=== PATIENT | male | born 1955 | race Caucasian/White ===

== ENCOUNTER 2023-10-23 08:09 | Inpatient (IN) | payer MEDICARE, SELFPAY ==
--- NOTE | ~2023-10-23 | XR_ITS ---
EXAMINATION: XR abdomen obstructive series DATE: 10/25/2023 11:23 INDICATION: Abdominal pain. Small bowel obstruction. TECHNIQUE: Upright and supine views of the abdomen were obtained. COMPARISON: CT abdomen and pelvis 10/23/2023 FINDINGS: There are no dilated loops of bowel. There is a small of stool in the colon. There are surg ical clips in left abdomen. No free intraperitoneal gas. IMPRESSION: 1. Nonobstructive bowel gas pattern. Reviewed, dictated and finalized at location E.
--- NOTE | ~2023-10-23 | XR_ITS ---
XR abdomen gastric tube insert INDICATION: Evaluate NG tube position. TECHNIQUE: Limited KUB perform for evaluating NG tube . COMPARISON: FINDINGS: NG tube is coiled in the distal esophagus. Recommend repositioning.. Visualized bowel gas pattern is nonspecific. IMPRESSION: 1: NG tube coiled in the distal esophagus. Recommend retraction with repositioning. Reviewed, dictated and finalized at location A. IMPRESSION: 1: NG tube coiled in the distal esophagus. Recommend retraction with repositio mayi.
--- NOTE | ~2023-10-23 | XR_ITS ---
XR chest 1V portable 10/23/2023 13:47 Indication: Pneumonia Procedure: AP portable chest Comparison: 02/28/2019 Findings: Bibasilar infiltrates, suspicious for pneumonia. NG tube tip in the stomach. The lungs are hyperinflated which is consistent with, but not diagnostic of chronic obstructive pulmonary disease. No significant effusion. No pneumothorax. Impression: 1: Bibasilar infiltrates, consistent with pneumonia. Reviewed, dictated and finalized at location A. Impression: 1: Bibasilar infiltrates, consistent with pneumonia.
--- NOTE | ~2023-10-23 | CT_ITS ---
EXAMINATION: CT abdomen pelvis w con DATE: 10/23/2023 09:49 INDICATION: Abdomen pain TECHNIQUE: Computed tomography (CT) of the abdomen and pelvis was performed without intravenous contr ast. The dose-length product was 312.69 mGy-cm. Automated exposure control and iterative reconstructi on technique were employed. COMPARISON: CT report dated 11/11/2013. Study is not available for direct comparison. FINDINGS: There are groundglass opacities of the lingula, left lower lobe. There is reticular nodular ity of the left lower lobe. There is mucous plugging in the lower lobe bronchi bilaterally. There is an 8 mm right lower lobe nodule, image 13 there are calcified granulomas of the left lower lobe. Hear t size normal. There are dilated fluid-filled small bowel loops throughout the abdomen. There is a right inguinal he rnia with a efferent segment being nondistended in the afferent segment being dilated, consistent wit h a small bowel obstruction secondary to hernia. There is fecal loading of the rectum. Fatty infiltra tion of the liver. There are calcified granulomas of the spleen. Gallbladder is moderately distended. No significant vascular abnormality. No lymphadenopathy. IMPRESSION: 1. Small bowel obstruction, likely transitioning and right inguinal hernia. 2: Groundglass opacities and mucous plugging of the lingula and left lower lobe, consistent with pneu monia. 3: Right lower lobe nodule measuring 8 mm. Recommend follow-up CT in 6 months. Reviewed, dictated and finalized at location A. IMPRESSION: 1. Small bowel obstruction, likely transitioning and right inguinal hernia. 2: Groundglass opacities and mucous plugging of the lingula and left lower lobe , consistent with pneumonia. 3: Right lower lobe nodule measuring 8 mm. Recommend follow-up CT in 6 months.
--- NOTE | ~2023-10-23 | XR_ITS ---
XR abdomen gastric tube rechec INDICATION: Evaluate NG tube position. TECHNIQUE: Limited KUB perform for evaluating NG tube . COMPARISON: 10/23/2023 FINDINGS: NG tube tip in the stomach. Visualized bowel gas pattern is nonspecific.There is residual contrast in nondilated renal collecting systems. IMPRESSION: 1: NG tube tip in the stomach. Reviewed, dictated and finalized at location A.
[2023-10-23 08:07] VITALS: BP 107/86; PULSE 100; RESP 16; TEMP 36.8; O2SAT 98
--- NOTE | 2023-10-23 08:33 | PC.NURSE ---
attempted to draw blood at this time without success. called phlebotomy at [id number] and they said they will come help
[2023-10-23 08:57] LABS: Basophils Absolute Auto 0.1 K/mm3 (0.0-0.1); Basophils Percent Auto 0.5 % (0.2-1.2); Eosinophils Absolute Auto 0.1 K/mm3 (0-0.3); Eosinophils Percent Auto 0.7 % (0-4.4); Hematocrit 49.8 % (42.0-52.0); Hemoglobin 16.8 g/dL (14.0-18.0); Immature Granulocyte Absolute 0.09 K/mm3 (0.00-0.031); Immature Granulocyte Percent A 0.5 % (0-0.5); Lymphocytes Absolute Auto 2.86 K/mm3 (0.9-3.2); Lymphocytes Percent Auto 15.8 % (18.3-44.2); Mean Corpuscular HGB Conc 33.7 g/dl (32-36); Mean Corpuscular Hemoglobin 29.4 pg (26-34); Mean Corpuscular Volume 87.1 fl (80-100); Mean Platelet Volume 8.6 fl (7.4-10.4); Monocytes Absolute Auto 1.8 K/mm3 (0.1-0.6); Monocytes Percent Auto 10.2 % (2.6-8.5); Neutrophils Absolute Auto 13.1 K/mm3 (1.3-6.7); Neutrophils Percent Auto 72.3 % (45.5-73.1); Platelet Count Result 556 k/mm3 (150-375); Red Blood Count 5.72 M/mm3 (4.6-6.20); Red Cell Distribution Width 14.3 % (11.5-14.5); White Blood Count 18.1 K/mm3 (4.5-10.0)
[2023-10-23 09:06] LABS: Lactic Acid Reflex 2.7 mmol/L (0.7-2.0)
[2023-10-23 09:07] LABS: Alanine Aminotransferase 18 U/L (6-50); Albumin Level 4.5 g/dL (3.5-5.1); Alkaline Phosphatase 134 U/L (38-126); Anion Gap 13 mmol/L (4-12); Aspartate Amino Transferase 32 U/L (17-59); Bilirubin,Total 0.8 mg/dL (0.2-1.3); Blood Urea Nitrogen 11 mg/dL (9-20); Calcium 9.6 mg/dL (8.4-10.2); Carbon Dioxide 22 mmol/L (22-30); Chloride 96 mmol/L (98-107); Estimated CRCL calculation 107 ml/min; Estimated Glomerular Filt Rate > 60; Glucose 109 mg/dL (65-110); Lipase 183 U/L (23-300); Potassium 3.4 mmol/L (3.4-5.0); Sodium 131 mmol/L (137-145)
[2023-10-23] MEDS: SODIUM CHLORIDE 0.9% IV 1,000 ML 30 ML IV CONT (09:15)
[2023-10-23] MEDS: ONDANSETRON INJ 4 MG/2 ML VIAL IV PUSH (09:15)
[2023-10-23] MEDS: MORPHINE SULFATE (*CRX) 4 MG/ML INJ IV PUSH ×3 (09:15→13:32)
--- NOTE | 2023-10-23 09:26 | PC.NURSE ---
pt was to receive 1L NS, rate changed to infuse bag at 999ml/hr
--- NOTE | 2023-10-23 10:34 | ED.ABDPAIN ---
HPI - Abdominal Pain General Chief Complaint: Abdominal Pain Stated Complaint: abd pain, n/v Time Seen by Provider: 10/23/23 08:14 History of Present Illness HPI narrative: This is a 68-year-old male, with history of inguinal hernia, presents emergency department complaining of left-sided abdominal pain for the past 4 days. Patient states the pain is constant, sharp cramping. He states his last bowel movement was 5 days ago, though was able to pass gas today. This is associated with nausea and nonbloody vomiting. He rates the pain 8/10 without radiation. He has no other complaints at this time. Related Data Allergies Allergy/AdvReac Type Severity Reaction Status Date / Time naproxen Allergy Intermediate Rash Verified 02/28/19 06:26 Review of Systems Review of Systems: CONSTITUTIONAL: Denies fever, chills, or sweats. ENT: Denies rhinorrhea, congestion, sore throat, or otalgia. CARDIOVASCULAR: Denies chest pain, palpitations, or edema. RESPIRATORY: Denies cough or dyspnea. GASTROINTESTINAL: Left lower quadrant abdominal pain, nausea nonbloody vomiting Denies diarrhea. GENITOURINARY: Denies dysuria or hematuria. SKIN: Denies rash or itching. MUSCULOSKELETAL: Denies back pain, joint pain, or myalgia. NEUROLOGIC: Denies headache, numbness, dizziness, or weakness. PSYCHIATRIC: Denies anxiety or depression. PMFSH Past Medical History Medical History Inguinal hernia Surgical History Surgical History No significant past surgical history Social History Social History (Updated 10/23/23 @ 10:35 by Jan Bender MD) Second hand tobacco smoke exposure: No Alcohol intake: never Substance use: never Exam Narrative: GENERAL: Well-developed, well-nourished, and in no acute distress. HEAD: Normocephalic, atraumatic. EYES: PERRLA and EOMI. CHEST: Clear to auscultation. No respiratory distress. No wheezes rales or rhonchi HEART: Regular rate and rhythm. No murmur heard. Normal peripheral pulses. ABDOMEN: Soft, tender palpation, primarily in the left lower quadrant without rebound though passive guarding, nondistended, normal active bowel sounds. Reducible right inguinal hernia that recurs EXTREMITIES: Normal range of motion. No edema. SKIN: Warm, dry, no rash. NEURO: Alert and oriented x3. No focal deficit. Moving all 4 limbs spontaneously PSYCH: Normal mood and affect. Course Course Emergency Course: 10:36 - CBC demonstrates elevated white blood cell count of 18. Chemistries demonstrate elevated lactic acid of 2.[address] abdomen pelvis demonstrates small bowel obstruction with transition point at the right inguinal hernia without other overlying changes. The patient's hernia is reducible without concerning changes for infection or strangulation. General surgery paged. 10:40 - I discussed the patient with general surgeon, Dr. Jacques who agrees with NG tube and will consult. Because the patient has inguinal hernia is reducible, surgery is not immediately indicated. 10:44 - I discussed patient with hospitalist, Dr. Desai who accepts admission. Vital Signs Vital signs: Vital Signs Temperature 98.2 F 10/23/23 08:07 Pulse Rate 100 10/23/23 08:07 Respiratory Rate 16 10/23/23 08:07 Blood Pressure 107/86 10/23/23 08:07 Pulse Oximetry 98 10/23/23 08:07 Temperature 98.2 F 10/23/23 08:07 Pulse Rate 100 10/23/23 08:07 Respiratory Rate 16 10/23/23 08:07 Blood Pressure 107/86 10/23/23 08:07 Pulse Oximetry 98 10/23/23 08:07 MDM - Abdominal Pain MDM Narrative Medical decision making narrative: Plan: Labs, imaging, pain control, reassess Differential Diagnosis Differential diagnosis: Likely abdominal pain, acute appendicitis, calculus of kidney, diverticulitis, gastroenteritis, pancreatitis, small bowel obstruction and other (Hernia, metab
[2023-10-23] MEDS: PIPERACILLN/TAZ 3.375GM/NS50ML 3.375 GM/50 ML BAG IVPB ×3 (11:33→23:49)
[2023-10-23 11:55] LABS: Reflex Lactic Acid Yes or No Add Lactic
[2023-10-23 12:15] LABS: Glucose Point of Care 89 mg/dl (65-105)
--- NOTE | 2023-10-23 12:24 | PM.IMHP ---
H&P: HPI History of Present Illness Date/Time: 10/24/23 00:51 Chief Complaint: Abdominal Pain Narrative: 68 y/o M presents here with diffuse abdominal pain with PMH of a right inguinal hernia. No past surgical history. Patient presents here from home for further evaluation of diffuse left sided abdominal pain that has been ongoing for the past 4 days. Patient describes the pain as achy, intermittent, and nonradiating. LBM was several days ago, did not provide exact date. Prior issues with constipation? Endorses flatulence today. Patient also developed nausea and vomiting. Emesis is nonbilious and nonbloody. No recent narcotic use, DIRECTOR [employer] reviewed. No history of previous abdominal surgery. Has hx of inguinal hernia, developed 3-4 months ago and is on the R side. Denies shortness of breath, fever, body aches, chills, cough, fatigue. Initial VS at presentation: 98.2? F, HR 100, RR 16, 107/86, and 98% on RA. ED workup showed: WBC 18.1, no anemia, platelet count 5 5 6, sodium 131, creatinine 0.5 and GFR >60, and lactic acid 2.7. CT of the abdomen and pelvis showed SBO likely transitioning and right inguinal hernia, ground-glass opacities in mucus plugging of the lingula and left lower lobe consistent with pneumonia, right lower lobe nodule measuring 8 mm. 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 Do You Feel Safe in your Home?: Yes Lack of Transportation: No Lack of Food: Never True Current Housing: I Have Housing Concerned About Future Housing: No Difficulty Paying Gas/Electric Bills: No Difficulty Paying for Meds: No Currently Unemployed: No Education: Decline to Answer Difficulty w/ Childcare or Family Care: No Spiritual care concerns: No Meds Home Medications and Allergies Home Medications Medication Instructions Recorded Confirmed Type No Home Medications 10/23/23 10/23/23 History Allergies Allergy/AdvReac Type Severity Reaction Status Date / Time naproxen Allergy Intermediate Rash Verified 02/28/19 06:26 hydromorphone [From Dilaudid] Allergy Redness of Verified 10/23/23 13:38 Skin morphine Allergy Redness of Verified 10/23/23 13:38 Skin Vital Signs Vital Signs - 24 hr 10/23/23 08:07 Temperature 98.2 F Pulse Rate 100 Respiratory Rate 16 Blood Pressure 107/86 Pulse Oximetry 98 Exam Const: General: comfortable and no acute distress Other: , male, nontoxic appearance HENMT: Face/Nose/Sinus: Normal nares present Mouth: Yes moist mucous membranes Eyes: General: appearance normal, both eyes and all related structures Sclera: sclerae normal Pupils: Equal, round and reactive pupils present EOM: EOMs intact bilaterally Resp: Effort & Inspection: normal respiratory effort Auscultation: clear to auscultation bilaterally Cardio: Rate: regular rate Rhythm: regular rhythm Other: S1-S2 present without murmur, rub, ectopy GI: Other: Mild distension, soft palpation, no guarding or tenderness, normoactive bowel sounds throughout. Inguinal hernia on right, reducible, nontender. Skin: General skin exam: normal color and no rashes or lesions noted Wounds: no wounds Neuro: Speech: normal speech Motor exam (neuro): 5/5 motor strength present throughout Sensory Exam: normal sensation Other: A&O x4 Extrem: General: normal to inspection Psych: Mental Status: mental status grossly nor
[2023-10-23] MEDS: HYDROmorphone HCL INJ (*CRX) 1 MG/ML SYR IV PUSH (12:44)
[2023-10-23] MEDS: LACTATED RINGERS 1,000 ML 125 ML IV CONT (12:52)
[2023-10-23 12:56] VITALS: BMI 21.7
--- NOTE | 2023-10-23 13:00 | ADMGEN ---
This patient, Frandy Gillette, was admitted to Medical Room 253-01. Patient/family oriented to hospital policies and general routines including ID bracelet, bed and alarms, visiting hours, pain management, procedures, bathroom and other care routines, personal items, smoking policy, room service/diet, and visiting hours. Information on how to activate the Rapid Response Team has been discussed. Patient/Family are encouraged to report perceived risks to care and to ask questions if they do not understand what they are told or what they should do.
--- NOTE | 2023-10-23 14:10 | PM.CNGS ---
Assessment and Plan Assessment and plan (1) Inguinal hernia, right: Code(s): K40.90 - Unilateral inguinal hernia, without obstruction or gangrene, not specified as recurrent Status: Acute Assessment and Plan: The patient has a reducible right inguinal hernia that is chronic. His abdominal symptoms are more likely related to the fecal impaction. He also has signs of sepsis with an elevated white blood count which could be related to pneumonia. Inguinal hernia repair is not emergent and would not be recommended at the time of ongoing pneumonia. Will continue to monitor for any signs of incarceration or strangulation. Soapsuds enema will be given to help with fecal impaction. Will continue to monitor. (2) Fecal impaction in rectum: Code(s): K56.41 - Fecal impaction Status: Acute (3) Sepsis: Code(s): A41.9 - Sepsis, unspecified organism Status: Acute (4) Pneumonia: Code(s): J18.9 - Pneumonia, unspecified organism Status: Acute History of Present Illness Consult details Consult date: 10/23/23 Reason for consult: other (Right inguinal hernia) Requesting physician: Jan Bender MD Narrative: This is a 68-year-old man who I am asked to see for a reducible right inguinal hernia. He presented to the emergency department with abdominal pain, nausea, and vomiting. He states that he has not had a bowel movement for several days. He has known about a hernia in his right groin for at least the past 3 or 4 months. He is having some tenderness down there right now but tolerates exam without any significant tenderness. In the emergency department he was noted to have an elevated white blood count, CT showed evidence of small-bowel obstruction, fecal impaction, right inguinal hernia, and pneumonia. He was admitted for further treatment. Review of Systems Review of Systems: All systems reviewed & are unremarkable except as noted in HPI and below Constitutional: Constitutional: Denies chills and Denies fever(s) Eyes: Eyes: Denies change in vision ENT: Denies hearing loss, Denies neck pain and Denies sore throat Cardiovascular: Cardiovascular: Denies chest pain and Denies dyspnea Respiratory: Respiratory: Denies cough, Denies dyspnea and Denies wheezing Gastrointestinal: Gastrointestinal: Reports as per HPI Genitourinary: Genitourinary: Denies hematuria and Denies dysuria Musculoskeletal: Musculoskeletal: Denies arthralgias, Denies joint swelling and Denies neck pain Allergic/Immunologic: Allergic/Immunologic: Denies wheezing PMFSH Past Medical History Medical History Inguinal hernia Surgical History Surgical History No significant past surgical history Social History Social History (Updated 10/23/23 @ 10:35 by Jan Bender MD) Second hand tobacco smoke exposure: No Alcohol intake: never Substance use: former 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 Do You Feel Safe in your Home?: Yes Lack of Transportation: No Lack of Food: Never True Current Housing: I Have Housing Concerned About Future Housing: No Difficulty Paying Gas/Electric Bills: No Difficulty Paying for Meds: No Currently Unemployed: No Education: Decline to Answer Difficulty w/ Childcare or Family Care: No Spiritual care concerns: No Meds Home Medications and Allergies Allergies Allergy/AdvReac Type Severity Reaction Status Date / Time naproxen Allergy Intermediate Rash Verified 02/28/19 06:26 hydromorphone [From Dilaudid] Allergy Redness of Verified 10/23/23 13:38 Skin morphine Allergy Redness of Verified 10/23/23 13:38 Skin Vital Signs Vital Signs - 24 hr 10/23/23 08:07 Temperature 36.8 C Pulse Rate 100 Respiratory Rate 16 Blood Pressure 107/86 Pulse Oximetry 98 Exam Const: General: alert; N
[2023-10-23 14:49] LABS: Procalcitonin 0.1 ng/mL
[2023-10-23] MEDS: fentaNYL CITRATE INJ (*CRX) 100 MCG/2 ML VIAL 25 MCG IV PUSH ×3 (16:03→23:47)
[2023-10-23 16:33] VITALS: TEMP 37.3
[2023-10-23 16:45] VITALS: BP 153/74; PULSE 76; RESP 20; TEMP 37.3; O2SAT 100
[2023-10-23 16:45] LABS: Add Urine Microscopic? YES; Appearance Urine Turbid (Clear); Bacteria Urine None Seen /hpf; Bilirubin Urine Negative (Negative); Blood Urine Negative (Negative); Color Urine Yellow (Yellow); Glucose Urine UA Negative (Negative); Ketones Urine Negative (Negative); Leukocyte Esterase Ur Negative LEU/UL (Negative); Nitrate Urine Negative (Negative); Non Pathogenic Casts 0-2; Protein Urine Trace mg/dL (Negative); Specific Grav Ur 1.048 (1.001-1.035); Squamous Epithelial Cell Urine None Seen /hpf (Few); WBC Urine 0-5 /hpf (0-3)
[2023-10-23 19:39] VITALS: BP 166/78; PULSE 66; RESP 18; TEMP 36.6; O2SAT 100
[2023-10-23 21:25] LABS: Lactic Acid 1.1 mmol/L (0.7-2.0)
[2023-10-24] MEDS: LACTATED RINGERS 1,000 ML 125 ML IV CONT ×2 (03:39→17:14)
[2023-10-24] MEDS: fentaNYL CITRATE INJ (*CRX) 100 MCG/2 ML VIAL 25 MCG IV PUSH ×5 (04:49→21:33)
[2023-10-24] MEDS: PIPERACILLN/TAZ 3.375GM/NS50ML 3.375 GM/50 ML BAG IVPB ×4 (04:50→23:16)
[2023-10-24 04:53] VITALS: PULSE 66; RESP 18; O2SAT 100
--- NOTE | 2023-10-24 05:04 | PC.NURSE ---
OBSERVED PT NG LYING ON THE FLOOR WHEN I ENTERED TO ADMINISTER MORNING MEDS. PT STATED HE PULLED THE NG OUT ON PURPOSE. I INFORMED THE PT THAT THE NG WOULD NEED TO BE REINSERTED. PT STATED THAT I COULD ABSOLUTELY NOT PLACE ANOTHER NG. EDUCATED PT ON IMPORTANCE OF NG IN RELATION TO HIS SBO AND HE STILL REFUSED.
[2023-10-24 05:29] LABS: Basophils Absolute Auto 0.1 K/mm3 (0.0-0.1); Basophils Percent Auto 0.8 % (0.2-1.2); Eosinophils Absolute Auto 0.2 K/mm3 (0-0.3); Eosinophils Percent Auto 1.2 % (0-4.4); Hematocrit 41.2 % (42.0-52.0); Hemoglobin 13.6 g/dL (14.0-18.0); Immature Granulocyte Absolute 0.09 K/mm3 (0.00-0.031); Immature Granulocyte Percent A 0.6 % (0-0.5); Lymphocytes Absolute Auto 2.66 K/mm3 (0.9-3.2); Lymphocytes Percent Auto 16.7 % (18.3-44.2); Mean Corpuscular Hemoglobin 29.4 pg (26-34); Mean Platelet Volume 8.9 fl (7.4-10.4); Monocytes Absolute Auto 1.6 K/mm3 (0.1-0.6); Monocytes Percent Auto 10.3 % (2.6-8.5); Neutrophils Absolute Auto 11.2 K/mm3 (1.3-6.7); Neutrophils Percent Auto 70.4 % (45.5-73.1); Platelet Count Result 451 k/mm3 (150-375); Red Blood Count 4.63 M/mm3 (4.6-6.20); Red Cell Distribution Width 14.3 % (11.5-14.5); White Blood Count 15.9 K/mm3 (4.5-10.0)
[2023-10-24 05:41] LABS: Anion Gap 7 mmol/L (4-12); Blood Urea Nitrogen 10 mg/dL (9-20); Calcium 8.5 mg/dL (8.4-10.2); Carbon Dioxide 22 mmol/L (22-30); Chloride 100 mmol/L (98-107); Estimated CRCL calculation 107 ml/min; Estimated Glomerular Filt Rate > 60; Glucose 93 mg/dL (65-110); Potassium 2.9 mmol/L (3.4-5.0); Sodium 129 mmol/L (137-145)
[2023-10-24 06:09] VITALS: BP 157/73; PULSE 63; RESP 16; TEMP 36.6; O2SAT 100
--- NOTE | 2023-10-24 07:02 | PM.IMPN ---
Progress Note: A&P Assessment and Plan (1) Sepsis: Code(s): A41.9 - Sepsis, unspecified organism Status: Acute Assessment and Plan: - meets SIRS criteria: HR, WBC. No hypotension or hypoxia. - lactic acid: 2.7 -> 1.1 - lactic elevated, procalcitonin added: 0.1 - 30 mL/kg = 2000 mL, 2L bolus of LR ordered - suspected source: PNA - started on Zosyn Q6H - blood cultures drawn on 10/22 - UA ordered - CT abd/pelvis 1. Small bowel obstruction, likely transitioning and right inguinal hernia. 2: Groundglass opacities and mucous plugging of the lingula and left lower lobe, consistent with pneumonia. 3: Right lower lobe nodule measuring 8 mm. Recommend follow-up CT in 6 months. - CXR ordered, showed bibasilar infiltrates, consistent with pneumonia. (2) Pneumonia: Code(s): J18.9 - Pneumonia, unspecified organism Status: Acute Assessment and Plan: - CXR: Bibasilar infiltrates, consistent with pneumonia. - risk factors: no recent abx or hospitalizations - started on Zosyn on 10/22, concurrent impaction/SBO - MRSA PCR negative - sputum culture - no supplemental O2 requirement (3) Small bowel obstruction: Code(s): K56.609 - Unspecified intestinal obstruction, unspecified as to partial versus complete obstruction Status: Acute Assessment and Plan: - CT abdomen/pelvis: small bowel obstruction, likely transitioning and right inguinal hernia. - Patient pulled NG tube overnight. Refuses new NG tube placement. Denies nauesa/vomiting at this time. - NPO. - General Surgery consulted, Georgie MEJIAS R inguinal hernia reducible - no immediate need for surgical intervention. Continue to monitor signs for incarceration or strangulation. abdominal symptoms were likely related to fecal impaction, trial of soapsuds enema given - very small amount of stool passed - Soapsuds enema x1 today - antiemetics PRN - IV fluids - monitor I&Os - trend labs - started on Zosyn, for abd coverage and has concurrent PNA (4) Inguinal hernia, right: Code(s): K40.90 - Unilateral inguinal hernia, without obstruction or gangrene, not specified as recurrent Status: Acute Assessment and Plan: - chronic, R sided - reducible, no signs of incarceration or incarceration - no immediate surgical intervention needed per surgery Time Spent With Patient Time with patient: 25 - 35 minutes Subjective Date/time seen: 10/24/23 07:02 Interval history: 68 y/o M presents here with diffuse abdominal pain with PMH of a right inguinal hernia. No past surgical history. Patient is lying in bed endorsing abdominal pain that he describes as an ache. Overnight he removed his NG tube and refuses a new one at this time. He denies nausea/vomiting and remains NPO with fluids IV. If he develops nausea/vomiting will need NG reinserted. He is passing flatus, but no BM. He states he had a small BM after his enema yesterday. Will obtain another soapsuds enema today. His right inguinal hernia remains nontender and reducible. Likely not the cause of patients abdominal pain. He denies chest pain, shortness of breath, palpitations, fever, and headache. Review of Systems Review of Systems: All systems reviewed & are unremarkable except as noted in HPI and below Exam Narrative: AF HR 66 HR 18 SpO2 100 BP 166/78 General: ill, frail appearing male in no acute respiratory distress, lying semi recumbent in bed. HEENT: Normocephalic. Atraumatic. Pupils equal round reactive to light. Extraocular movement intact. Sclera clear and anicteric. Nares patent. No facial asymmetry. Chest: Lungs are diminished to auscultation bilaterally. No wheezes or crackles. CV: Heart was regular rate and rhythm. S1/S2. No murmurs, gallops, or rubs. Abd: Abdomen was soft. tender throughout. Nondistended. hypoactive bowel sounds. Nontender reducible right inguinal hernia. Ext: No clubbing, cyanosis, or edema. 2+ DP pulses bilaterally. Neuro: Pat
[2023-10-24 07:32] LABS: Magnesium 1.7 mg/dL (1.6-2.3)
[2023-10-24] MEDS: POTASSIUM CHLORIDE INJ 40 MEQ in SODIUM CHLORIDE 0.9% IV 500 ML 130 MEQ IVPB (08:27)
[2023-10-24] MEDS: POTASSIUM CHLORIDE 20 MEQ ER TABLET 40 MEQ PO (08:28)
[2023-10-24] MEDS: PANTOPRAZOLE SODIUM IV 40 MG VIAL IV PUSH (08:28)
--- NOTE | 2023-10-24 11:40 | PM.PNGS ---
Progress Note: A&P Assessment and Plan (1) Inguinal hernia, right: Code(s): K40.90 - Unilateral inguinal hernia, without obstruction or gangrene, not specified as recurrent Status: Acute Assessment and Plan: Right inguinal hernia still soft and reducible. This is chronic and likely not causing his abdominal pain. NG pulled out overnight by patient. He is still having nausea and abdominal pain. Keep him NPO with IV fluids for now while attempting more bowel stimulation. Could start clear liquids if nausea improves, but will need to replace NG if he begins vomiting. (2) Fecal impaction in rectum: Code(s): K56.41 - Fecal impaction Status: Acute Assessment and Plan: Only two small BMs since his enema yesterday. Soap suds enema ordered today. Could consider more bowel stimulation depending on his response to the enema. (3) Sepsis: Code(s): A41.9 - Sepsis, unspecified organism Status: Acute (4) Pneumonia: Code(s): J18.9 - Pneumonia, unspecified organism Status: Acute Plan I have discussed the patient's case and plan of care with Dr. Jacques. Subjective Subjective Date/Time Seen: 10/24/23 11:40 Interval history: This is a 68-year-old man who was admitted for pneumonia, sepsis, fecal impaction, and right inguinal hernia with CT findings of a small-bowel obstruction likely transitioning at small bowel loops in the right inguinal hernia. Patient had an NG tube placed on admission, but per nursing he pulled his NG tube out overnight. Chart reviewed. He reports nausea and lower abdominal pain today. No vomiting. He had a soapsuds enema yesterday with 2 small bowel movements since the enema. He denies much flatus. Nursing at the bedside and patient agrees to rectal exam. Exam Const: General: No acute distress Orientation/consciousness: patient oriented x3 GI: Inspection: non-distended GI Palp: Yes Soft to palpation, Yes Tenderness to palpation present (GI) (Diffusely tender), No Guarding due to palpation present (GI), Yes Hernia present (Soft, reducible, nontender right inguinal hernia), No Palpable mass present (No palpable mass) and No Rebound tenderness present Auscultation: Hypoactive bowel sounds present Rectal Exam: visual inspection normal, normal sphincter tone, No External hemorrhoid(s) present, No mass (No palpable mass on digital rectal exam), No tenderness and other (Smear of stool on sheets) Other: On digital rectal exam, there was soft stool further up into the rectum, but no hard stool ball that required disimpaction. : Penis: Yes normal penis Scrotum: scrotum normal Objective Data Vital Signs Vital Signs: Vital Signs - 24 hr 10/23/23 16:45 10/23/23 16:33 10/23/23 18:41 Temperature 99.2 F 99.2 F Pulse Rate 76 Respiratory Rate 20 Blood Pressure 153/74 H Pulse Oximetry 100 Oxygen Delivery Room Air 10/23/23 19:39 10/23/23 20:00 10/24/23 04:53 Temperature 97.8 F Pulse Rate 66 66 Respiratory Rate 18 18 Blood Pressure 166/78 H Pulse Oximetry 100 100 Oxygen Delivery Room Air Room Air 10/24/23 06:09 10/24/23 08:00 Temperature 97.9 F Pulse Rate 63 Respiratory Rate 16 Blood Pressure 157/73 H Pulse Oximetry 100 Oxygen Delivery Room Air Intake/Output Intake/Output: Intake & Output 10/21/23 10/22/23 10/23/23 10/24/23 23:59 23:59 23:59 23:59 Intake Total 3100 100 Output Total 1900 575 Balance 1200 -475 Meds/Results Medications: Active Medications Generic Name Dose Route Start Last Admin Trade Name Freq PRN Reason Stop Dose Admin Diphenhydramine HCl 25 mg 10/23/23 13:35 Diphenhydramine Hcl Inj 50 Mg/Ml Vial IV PUSH ONCE PRN Allergic Reaction Fentanyl Citrate 25 mcg 10/23/23 13:34 10/24/23 08:32 Fentanyl Citrate Inj (*Crx) 100 Mcg/2 Ml Vial IV PUSH 25 mcg Q4H PRN Administration Pain Rated 7-10 Lactated Ringer's 1,000 mls @ 125 mls/hr
[2023-10-24 14:44] LABS: Potassium 3.6 mmol/L (3.4-5.0)
[2023-10-24 15:21] VITALS: BP 148/75; PULSE 71; RESP 20; TEMP 37.1; O2SAT 98
[2023-10-24 21:35] VITALS: BP 159/80; PULSE 82; RESP 20; TEMP 37.1; O2SAT 97
[2023-10-25] MEDS: LACTATED RINGERS 1,000 ML 125 ML IV CONT (01:34)
[2023-10-25] MEDS: fentaNYL CITRATE INJ (*CRX) 100 MCG/2 ML VIAL 25 MCG IV PUSH ×6 (01:34→20:24)
[2023-10-25 05:05] VITALS: BP 154/82; PULSE 74; RESP 20; TEMP 36.9; O2SAT 96
[2023-10-25] MEDS: PIPERACILLN/TAZ 3.375GM/NS50ML 3.375 GM/50 ML BAG IVPB ×3 (05:22→17:36)
[2023-10-25 05:35] LABS: Hematocrit 41.8 % (42.0-52.0); Hemoglobin 14.2 g/dL (14.0-18.0); Mean Corpuscular Hemoglobin 29.3 pg (26-34); Mean Corpuscular Volume 86.4 fl (80-100); Mean Platelet Volume 8.8 fl (7.4-10.4); Platelet Count Result 477 k/mm3 (150-375); Red Blood Count 4.84 M/mm3 (4.6-6.20); Red Cell Distribution Width 13.7 % (11.5-14.5); White Blood Count 18.8 K/mm3 (4.5-10.0)
[2023-10-25 05:48] LABS: Anion Gap 13 mmol/L (4-12); Blood Urea Nitrogen 9 mg/dL (9-20); Carbon Dioxide 17 mmol/L (22-30); Chloride 101 mmol/L (98-107); Estimated CRCL calculation 107 ml/min; Estimated Glomerular Filt Rate > 60; Glucose 77 mg/dL (65-110); Potassium 3.4 mmol/L (3.4-5.0); Sodium 131 mmol/L (137-145)
--- NOTE | 2023-10-25 07:59 | PM.IMPN ---
Progress Note: A&P Assessment and Plan (1) Sepsis: Code(s): A41.9 - Sepsis, unspecified organism Status: Acute Assessment and Plan: - meets SIRS criteria: HR, WBC. No hypotension or hypoxia. - lactic acid: 2.7 -> 1.1 - lactic elevated, procalcitonin added: 0.1 - 30 mL/kg = 2000 mL, 2L bolus of LR ordered - suspected source: PNA - started on Zosyn Q6H - blood cultures drawn on 10/22 - UA ordered - CT abd/pelvis 1. Small bowel obstruction, likely transitioning and right inguinal hernia. 2: Groundglass opacities and mucous plugging of the lingula and left lower lobe, consistent with pneumonia. 3: Right lower lobe nodule measuring 8 mm. Recommend follow-up CT in 6 months. - CXR ordered, showed bibasilar infiltrates, consistent with pneumonia. (2) Pneumonia: Code(s): J18.9 - Pneumonia, unspecified organism Status: Acute Assessment and Plan: - CXR: Bibasilar infiltrates, consistent with pneumonia. - risk factors: no recent abx or hospitalizations - started on Zosyn on 10/22, concurrent impaction/SBO - MRSA PCR negative - sputum culture - no supplemental O2 requirement (3) Small bowel obstruction: Code(s): K56.609 - Unspecified intestinal obstruction, unspecified as to partial versus complete obstruction Status: Acute Assessment and Plan: - CT abdomen/pelvis: small bowel obstruction, likely transitioning and right inguinal hernia. - KUB 10/24: Nonobstructive bowel gas pattern - Refuses new NG tube placement. Denies nauesa/vomiting at this time. - Clear liquid diet. Advance as tolerated - General Surgery consulted, Georgie Conway inguinal hernia reducible - no immediate need for surgical intervention. Continue to monitor signs for incarceration or strangulation. abdominal symptoms were likely related to fecal impaction, trial of soapsuds enema given - very small amount of stool passed - Soapsuds enema x1 yesterday. Patients has had 3 bowel movements since. - antiemetics PRN - IV fluids - monitor I&Os - trend labs - started on Zosyn, for abd coverage and has concurrent PNA (4) Inguinal hernia, right: Code(s): K40.90 - Unilateral inguinal hernia, without obstruction or gangrene, not specified as recurrent Status: Acute Assessment and Plan: - chronic, R sided - reducible, no signs of incarceration or incarceration - no immediate surgical intervention needed per surgery Time Spent With Patient Time with patient: 25 - 35 minutes Subjective Date/time seen: 10/25/23 07:59 Interval history: 68 y/o M presents here with diffuse abdominal pain with PMH of a right inguinal hernia. No past surgical history. Patient states that after the enema yesterday he has had 3 BM. He states that his abdominal pain has improved somewhat since having BM and is well controlled on the regimen. He was evaluated by surgery today who have advanced him to clear liquid diet at this time. He denies chest pain, shortness of breath, nausea/vomiting and changes in bladder. Review of Systems Review of Systems: All systems reviewed & are unremarkable except as noted in HPI and below Exam Narrative: AF HR 74 RR 16 SpO2 95 2L BP 135/57 General: ill, frail appearing male in no acute respiratory distress, lying semi recumbent in bed. HEENT: Normocephalic. Atraumatic. Pupils equal round reactive to light. Extraocular movement intact. Sclera clear and anicteric. Nares patent. No facial asymmetry. Chest: Lungs are diminished to auscultation bilaterally. No wheezes or crackles. CV: Heart was regular rate and rhythm. S1/S2. No murmurs, gallops, or rubs. Abd: Abdomen was soft. tender throughout. Nondistended. hypoactive bowel sounds. Nontender reducible right inguinal hernia. Ext: No clubbing, cyanosis, or edema. 2+ DP pulses bilaterally. Neuro: Patient is alert and oriented x4. Speech is clear. Psych: Normal mood and affect. Patient is pleasant and cooperative. Skin: Warm an
[2023-10-25 08:44] VITALS: O2SAT 99
[2023-10-25] MEDS: PANTOPRAZOLE SODIUM IV 40 MG VIAL IV PUSH (09:32)
[2023-10-25] MEDS: HYDROcodone/acetaminophen (*CRX) 5-325 MG TABLET 1 TAB PO ×3 (09:36→22:04)
--- NOTE | 2023-10-25 11:42 | PM.PNGS ---
Progress Note: A&P Assessment and Plan (1) Fecal impaction in rectum: Code(s): K56.41 - Fecal impaction Status: Acute Assessment and Plan: Bowels moving now. Start clear liquids. Advance as tolerated. (2) Inguinal hernia, right: Code(s): K40.90 - Unilateral inguinal hernia, without obstruction or gangrene, not specified as recurrent Status: Acute Assessment and Plan: No signs of incarceration or strangulation. Can be addressed as outpatient if patient having continued symptoms. (3) Pneumonia: Code(s): J18.9 - Pneumonia, unspecified organism Status: Acute Subjective Subjective Date/Time Seen: 10/25/23 11:42 Interval history: Bowels moving. Feeling better. No abdominal pain or groin pain. Exam GI: Inspection: non-distended GI Palp: Yes Soft to palpation, No Tenderness to palpation present (GI) and No Guarding due to palpation present (GI) Auscultation: normal bowel sounds : Scrotum: inguinal hernia on the right (soft, nontender, reducible) Objective Data Vital Signs Vital Signs: Vital Signs - 24 hr 10/24/23 15:21 10/24/23 21:35 10/25/23 05:05 Temperature 37.1 C 37.1 C 36.9 C Pulse Rate 71 82 74 Respiratory Rate 20 20 20 Blood Pressure 148/75 H 159/80 H 154/82 H Pulse Oximetry 98 97 96 Oxygen Delivery 10/25/23 08:44 Temperature Pulse Rate Respiratory Rate Blood Pressure Pulse Oximetry 99 Oxygen Delivery Room Air Intake/Output Intake/Output: Intake & Output 10/22/23 10/23/23 10/24/23 10/25/23 23:59 23:59 23:59 23:59 Intake Total 3100 1250 1050 Output Total 1900 2075 675 Balance 1200 -825 375 Meds/Results Medications: Active Medications Generic Name Dose Route Start Last Admin Trade Name Freq PRN Reason Stop Dose Admin Acetaminophen 650 mg 10/25/23 08:30 Acetaminophen 325 Mg Tablet PO Q6H PRN Mild Pain (1-3) or Fever Hydrocodone Bitart/Acetaminophen 1 tab 10/25/23 08:30 10/25/23 09:36 Hydrocodone/Acetaminophen (*Crx) 5-325 Mg Tablet PO 1 tab Q6H PRN Administration Pain Rated 4-6 Diphenhydramine HCl 25 mg 10/23/23 13:35 Diphenhydramine Hcl Inj 50 Mg/Ml Vial IV PUSH ONCE PRN Allergic Reaction Fentanyl Citrate 25 mcg 10/25/23 08:24 10/25/23 09:32 Fentanyl Citrate Inj (*Crx) 100 Mcg/2 Ml Vial IV PUSH 25 mcg Q3H PRN Administration Pain Rated 7-10 Lactated Ringer's 1,000 mls @ 125 mls/hr 10/23/23 10:45 10/25/23 01:34 Lr - Lactated Ringers Iv IV CONT 125 mls/hr .Q8H BERNARDO Administration Piperacillin/Tazobactam/Dextrose 3.375 gm in 50 mls @ 100 mls/hr 10/23/23 18:00 10/25/23 05:52 Zosyn 3.375 Gm/Ns 50 Ml IVPB Infused Q6HR BERNARDO Infusion Pantoprazole Sodium 40 mg 10/24/23 09:00 10/25/23 09:32 Pantoprazole Sodium Iv 40 Mg Vial IV PUSH 40 mg DAILY BERNARDO Administration Radiology Results: ITS Impressions Abdomen/Pelvis CT 10/23/23 09:57 IMPRESSION: 1. Small bowel obstruction, likely transitioning and right inguinal hernia. 2: Groundglass opacities and mucous plugging of the lingula and left lower lobe, consistent with pneumonia. 3: Right lower lobe nodule measuring 8 mm. Recommend follow-up CT in 6 months. Chest X-Ray 10/23/23 13:55 Impression: 1: Bibasilar infiltrates, consistent with pneumonia. Abdomen X-Ray 10/25/23 11:27 IMPRESSION: 1. Nonobstructive bowel gas pattern. Labs Labs: Laboratory Results - last 24 hr 10/24/23 10/25/23 14:16 05:22 WBC 18.8 H RBC 4.84 Hgb 14.2 Hct 41.8 L MCV 86.4 MCH 29.3 MCHC 34.0 RDW 13.7 Plt Count 477 H MPV 8.8 Sodium 131 L Potassium 3.6 3.4 Chloride 101 Carbon Dioxide 17 L Anion Gap 13 H BUN 9 Creatinine 0.50 L Estim Creat Clear Calc 107 Estimated GFR > 60 Glucose 77 Calcium 9.0
[2023-10-25 14:00] VITALS: BP 135/57; PULSE 74; RESP 16; TEMP 36.7; O2SAT 95
[2023-10-25 20:37] VITALS: BP 130/64; PULSE 68; RESP 18; TEMP 36.9; O2SAT 97
[2023-10-25] MEDS: diphenhydrAMINE HCl INJ 50 MG/ML VIAL 25 MG IV PUSH (22:13)
[2023-10-26] MEDS: PIPERACILLN/TAZ 3.375GM/NS50ML 3.375 GM/50 ML BAG IVPB ×2 (00:18→05:49)
[2023-10-26] MEDS: fentaNYL CITRATE INJ (*CRX) 100 MCG/2 ML VIAL 25 MCG IV PUSH ×2 (01:24→08:55)
[2023-10-26 05:49] VITALS: BP 139/72; PULSE 69; RESP 18; TEMP 36.6; O2SAT 96
[2023-10-26] MEDS: HYDROcodone/acetaminophen (*CRX) 5-325 MG TABLET 1 TAB PO (05:49)
[2023-10-26 08:24] LABS: Basophils Absolute Auto 0.1 K/mm3 (0.0-0.1); Basophils Percent Auto 0.6 % (0.2-1.2); Eosinophils Absolute Auto 0.2 K/mm3 (0-0.3); Eosinophils Percent Auto 1.7 % (0-4.4); Hematocrit 39.2 % (42.0-52.0); Hemoglobin 13.3 g/dL (14.0-18.0); Immature Granulocyte Absolute 0.03 K/mm3 (0.00-0.031); Immature Granulocyte Percent A 0.3 % (0-0.5); Lymphocytes Absolute Auto 2.39 K/mm3 (0.9-3.2); Lymphocytes Percent Auto 22.1 % (18.3-44.2); Mean Corpuscular HGB Conc 33.9 g/dl (32-36); Mean Corpuscular Hemoglobin 29.8 pg (26-34); Mean Corpuscular Volume 87.9 fl (80-100); Mean Platelet Volume 8.9 fl (7.4-10.4); Monocytes Absolute Auto 1.4 K/mm3 (0.1-0.6); Monocytes Percent Auto 12.6 % (2.6-8.5); Neutrophils Absolute Auto 6.8 K/mm3 (1.3-6.7); Neutrophils Percent Auto 62.7 % (45.5-73.1); Platelet Count Result 520 k/mm3 (150-375); Red Blood Count 4.46 M/mm3 (4.6-6.20); Red Cell Distribution Width 13.9 % (11.5-14.5); White Blood Count 10.8 K/mm3 (4.5-10.0)
[2023-10-26 08:40] LABS: Alanine Aminotransferase 15 U/L (6-50); Albumin Level 3.6 g/dL (3.5-5.1); Alkaline Phosphatase 105 U/L (38-126); Anion Gap 7 mmol/L (4-12); Aspartate Amino Transferase 21 U/L (17-59); Bilirubin,Total 0.6 mg/dL (0.2-1.3); Blood Urea Nitrogen 7 mg/dL (9-20); Calcium 8.5 mg/dL (8.4-10.2); Carbon Dioxide 23 mmol/L (22-30); Chloride 103 mmol/L (98-107); Estimated CRCL calculation 107 ml/min; Estimated Glomerular Filt Rate > 60; Glucose 114 mg/dL (65-110); Sodium 133 mmol/L (137-145)
[2023-10-26] MEDS: PANTOPRAZOLE SODIUM IV 40 MG VIAL IV PUSH (08:56)
--- NOTE | 2023-10-26 12:09 | PM.DS ---
DS: Admitting Diagnosis Discharge Date 10/26/23 Admitting Diagnosis pneumonia, SBO DS: Discharge Diagnosis Discharge Diagnosis (1) Sepsis: Code(s): A41.9 - Sepsis, unspecified organism Status: Acute Assessment and Plan: - meets SIRS criteria: HR, WBC. No hypotension or hypoxia. - lactic acid: 2.7 -> 1.1 - lactic elevated, procalcitonin added: 0.1 - 30 mL/kg = 2000 mL, 2L bolus of LR ordered - suspected source: PNA - started on Zosyn Q6H - blood cultures drawn on 10/22 - UA ordered - CT abd/pelvis 1. Small bowel obstruction, likely transitioning and right inguinal hernia. 2: Groundglass opacities and mucous plugging of the lingula and left lower lobe, consistent with pneumonia. 3: Right lower lobe nodule measuring 8 mm. Recommend follow-up CT in 6 months. - CXR ordered, showed bibasilar infiltrates, consistent with pneumonia. (2) Pneumonia: Code(s): J18.9 - Pneumonia, unspecified organism Status: Acute Assessment and Plan: - CXR: Bibasilar infiltrates, consistent with pneumonia. - risk factors: no recent abx or hospitalizations - started on Zosyn on 10/22, concurrent impaction/SBO - MRSA PCR negative - sputum culture - no supplemental O2 requirement (3) Small bowel obstruction: Code(s): K56.609 - Unspecified intestinal obstruction, unspecified as to partial versus complete obstruction Status: Acute Assessment and Plan: - CT abdomen/pelvis: small bowel obstruction, likely transitioning and right inguinal hernia. - KUB 10/24: Nonobstructive bowel gas pattern - Refuses new NG tube placement. Denies nauesa/vomiting at this time. - Clear liquid diet. Advance as tolerated - General Surgery consulted, Georgie Conway inguinal hernia reducible - no immediate need for surgical intervention. Continue to monitor signs for incarceration or strangulation. abdominal symptoms were likely related to fecal impaction, trial of soapsuds enema given - very small amount of stool passed - Soapsuds enema x1 yesterday. Patients has had 3 bowel movements since. - antiemetics PRN - IV fluids - monitor I&Os - trend labs - started on Zosyn, for abd coverage and has concurrent PNA (4) Inguinal hernia, right: Code(s): K40.90 - Unilateral inguinal hernia, without obstruction or gangrene, not specified as recurrent Status: Acute Assessment and Plan: - chronic, R sided - reducible, no signs of incarceration or incarceration - no immediate surgical intervention needed per surgery DS: Summary Hospital Course Hospital Course: 68 y/o M presents here with diffuse abdominal pain with PMH of a right inguinal hernia. No past surgical history. Patient presents here from home for further evaluation of diffuse left sided abdominal pain that has been ongoing for the past 4 days. LBM was several days prior to ED arrival. Patient also developed nausea and vomiting. Emesis is nonbilious and nonbloody. No recent narcotic use, although patient did admit that he used methamphetamines prior to ED arrival. Toxicology screen was not performed during this admission. No history of previous abdominal surgery. Has hx of inguinal hernia, developed 3-4 months ago and is on the R side. Denies shortness of breath, fever, body aches, chills, cough, fatigue.? CT of the abdomen and pelvis showed SBO likely transitioning and right inguinal hernia, ground-glass opacities in mucus plugging of the lingula and left lower lobe consistent with pneumonia, right lower lobe nodule measuring 8 mm. General surgery consulted. Patient had several days bowel rest but did not want NG tube placed. Patient was slowly able to advance his diet. He started having bowel movements a day or 2 prior to discharge. He was also found to have a pneumonia which she was treated for. He did not require any oxygen supplementation. He will be transitioned to p.o. antibiotics. patient was requiring IV pain medication and stated that he coul
--- NOTE | 2023-10-26 13:52 | PM.PNGS ---
Progress Note: A&P Assessment and Plan (1) Fecal impaction in rectum: Code(s): K56.41 - Fecal impaction Status: Acute Assessment and Plan: Bowels moving and he is tolerating a solid diet. (2) Inguinal hernia, right: Code(s): K40.90 - Unilateral inguinal hernia, without obstruction or gangrene, not specified as recurrent Status: Acute Assessment and Plan: No signs of incarceration or strangulation. Okay to discharge from a surgical standpoint. Follow-up with Dr. Jacques as an outpatient if continues to have symptoms with his hernia to discuss elective repair after he recovers from the pneumonia. (3) Pneumonia: Code(s): J18.9 - Pneumonia, unspecified organism Status: Acute Plan I have discussed the patient's case and plan of care with Dr. Jacques. Subjective Subjective Date/Time Seen: 10/26/23 09:52 Patient reports: no new complaints, tolerating a regular diet, flatus and bowel movement Interval history: Patient doing well today. Denies any abdominal pain. He reports pain with his hernia when he coughs or is up moving around. He is moving his bowels and tolerating a diet. Exam Const: General: No acute distress Orientation/consciousness: patient oriented x3 GI: Inspection: non-distended GI Palp: Yes Soft to palpation, No Tenderness to palpation present (GI), No Guarding due to palpation present (GI) and No Rebound tenderness present Auscultation: normal bowel sounds : Scrotum: inguinal hernia on the right (soft, nontender, reducible) Objective Data Vital Signs Vital Signs: Vital Signs - 24 hr 10/25/23 14:00 10/25/23 20:37 10/25/23 20:35 Temperature 98.1 F 98.4 F Pulse Rate 74 68 Respiratory Rate 16 18 Blood Pressure 135/57 L 130/64 Pulse Oximetry 95 97 Oxygen Delivery Room Air 10/26/23 05:49 10/26/23 08:00 Temperature 98 F Pulse Rate 69 Respiratory Rate 18 Blood Pressure 139/72 Pulse Oximetry 96 Oxygen Delivery Room Air Intake/Output Intake/Output: Intake & Output 10/23/23 10/24/23 10/25/23 10/26/23 23:59 23:59 23:59 23:59 Intake Total 3100 1250 1630 1810 Output Total 1900 2075 2195 1400 Balance 1200 -825 -565 410 Meds/Results Radiology Results: ITS Impressions Abdomen/Pelvis CT 10/23/23 09:57 IMPRESSION: 1. Small bowel obstruction, likely transitioning and right inguinal hernia. 2: Groundglass opacities and mucous plugging of the lingula and left lower lobe, consistent with pneumonia. 3: Right lower lobe nodule measuring 8 mm. Recommend follow-up CT in 6 months. Chest X-Ray 10/23/23 13:55 Impression: 1: Bibasilar infiltrates, consistent with pneumonia. Abdomen X-Ray 10/25/23 11:27 IMPRESSION: 1. Nonobstructive bowel gas pattern. Labs Labs: Laboratory Results - last 24 hr 10/26/23 07:49 WBC 10.8 H RBC 4.46 L Hgb 13.3 L Hct 39.2 L MCV 87.9 MCH 29.8 MCHC 33.9 RDW 13.9 Plt Count 520 H MPV 8.9 Immature Gran % (Auto) 0.3 Neut % (Auto) 62.7 Lymph % (Auto) 22.1 [place] % (Auto) 12.6 H Eos % (Auto) 1.7 Baso % (Auto) 0.6 Lymph # (Auto) 2.39 [place] # (Auto) 1.4 H Eos # (Auto) 0.2 Baso # (Auto) 0.1 Abs Immat Gran (auto) 0.03 Absolute Neuts (auto) 6.8 H Absolute Nucleated RBC 0.000 Nucleated RBC % 0.0 Sodium 133 L Potassium 3.0 L Chloride 103 Carbon Dioxide 23 Anion Gap 7 BUN 7 L Creatinine 0.50 L Estim Creat Clear Calc 107 Estimated GFR > 60 Glucose 114 H Calcium 8.5 Total Bilirubin 0.6 AST 21 ALT 15 Alkaline Phosphatase 105 Total Protein 7.0 Albumin 3.6
== END 2023-10-26 13:15 | disposition home or self-care (01) | DRG 194 ==
LOC: ANHED 10:40 → ANH2MED 11:32
PROVIDERS: Internal Medicine Critical Care Medicine; Nurse Practitioner Family; Student in an Organized Health Care Education/Training Program; Admitting Provider General Practice; Emergency Provider Preventive Medicine Aerospace Medicine; Visit Provider Hospitalist
DX: J18.9 Pneumonia, unspecified organism (principal); K56.609 Unspecified intestinal obstruction, unspecified as to partial versus complete obstruction; K56.41 Fecal impaction; K40.90 Unilateral inguinal hernia, without obstruction or gangrene, not specified as recurrent
CPT/HCPCS: 36415; 71045; 74019; 74177; 80048; 80053; 81001; 82948; 83605; 83690; 83735; 84132; 84145; 85025; 85027; 87040; 96361; 96365; 96375; 96376; 99285; A9270; C9113; G0378; J1170; J1200; J2270; J2405; J2543; J3010; J3480; J7030; J7040; J7120; Q9967